=== PATIENT | female | born 1950 | race African-American/Black ===

== ENCOUNTER 2017-07-29 18:26 | Emergency (ER) | payer BC ==
[2017-07-29 19:46] LABS: #Basophils 0.1 thou/uL (0.0-0.2); #Eosinphils 0.2 thou/uL (0.0-0.7); #Lymphocytes 3.1 thou/uL (1.20-3.40); #Monocytes 0.5 thou/uL (0.11-0.59); %Basophils 1.3 % (0.0-1.0); %Eosinophils 2.8 % (0.0-10.0); %Lymphocytes 39.2 % (21.0-51.0); %Monocytes 6.6 % (0.0-10.0); %Neutrophils 50.2 % (42.0-75.0); Hemoglobin 13.2 g/dL (12.0-16.0); Mean Corpuscular HGB CONC 32.1 g/dL (32.0-36.0); Mean Corpuscular Hemoglobin 30.6 pg (27.0-31.0); Mean Corpuscular Volume 95.3 fl (81.0-99.0); Mean Platelet Volume 8.5 fL (7.4-10.4); Platelet Count 206 thou/uL (130-400); RBC Distribution Width 12.5 % (11.5-14.5); Red Blood Cell (RBC) Count 4.33 mill/uL (4.20-5.40)
[2017-07-29 20:07] LABS: ALT (SGPT) 9 U/L (8-55); AST (SGOT) 16 U/L (5-34); Albumin 4.6 g/dL (3.4-4.8); Alkaline Phosphatase 57 U/L (40-150); Anion Gap 12 mmol/L (10-20); BUN (Urea Nitrogen) 14 mg/dL (9.8-20.1); Bilirubin, Total 0.6 mg/dL (0.2-1.2); CK (CPK) 82 U/L (29-168); Calc. Creatinine Clearance 0 mL/min (70-130); Calcium 9.9 mg/dL (7.8-10.44); Carbon Dioxide 28 mmol/L (23-31); Chloride 103 mmol/L (98-107); Estimated GFR-MDRD 67; Globulin 3.6 g/dL (2.4-3.5); Glucose 107 mg/dL (80-115); Potassium 4.2 mmol/L (3.5-5.1); Protein, Total 8.2 g/dL (6.0-8.3); Sodium 139 mmol/L (136-145)
[2017-07-29 20:12] LABS: CKMB 0.6 ng/mL (0-6.6); Troponin I Less than 0.010 ng/mL (< 0.028)
--- NOTE | 2017-07-29 20:37 | RAD ---
PORTABLE AP CHEST RADIOGRAPH: Date: 07-29-17 History: Chest pain for two days. FINDINGS: Cardiac silhouette and pulmonary vasculature are within normal limits. There are few linear densities seen within the upper lung zones bilaterally, likely related to linear areas of scarring. Calcified granulomata overlie the left upper lung zone. Lungs are otherwise clear. Mild degenerative changes ar e present in the spine. There is bilateral glenohumeral osteoarthropathy with bilateral acromioclavic ular joint osteoarthritis. Vascular calcification in the thoracic aorta. IMPRESSION: 1. Vascular calcification in the thoracic aorta. 2. Mild chronic lung changes, but no acute cardiopulmonary process is visualized. POS: [facility]
--- NOTE | 2017-08-17 13:04 | EKG ---
Test Reason : Blood Pressure : / mmHG Vent. Rate : 071 BPM Atrial Rate : 071 BPM P-R Int : 158 ms QRS Dur : 080 ms QT Int : 400 ms P-R-T Axes : 062 -17 000 degrees QTc Int : 434 ms Normal sinus rhythm Nonspecific T wave abnormality Abnormal ECG No ST elevation/IN Confirmed by DELVIN FAUSTIN, MOMO ([id number]), editorial cartoonist CARLOS SPEAR ([id number]) on 08/17/2017 1:04:42 PM Referred By: Confirmed By:MOMO HARGROVE MD
== END 2017-07-29 23:20 | disposition home or self-care (01) ==
LOC: ERS 18:26
DX: R07.9 Chest pain, unspecified (principal); F41.9 Anxiety disorder, unspecified; F32.9 Major depressive disorder, single episode, unspecified; J45.909 Unspecified asthma, uncomplicated
CPT/HCPCS: 36415; 71045; 80053; 82553; 84484; 85025; 93005

== ENCOUNTER 2018-02-05 21:19 | Emergency (ER) | payer BC, MEDICARE ==
--- NOTE | 2018-02-06 00:15 | RAD ---
CHEST ONE VIEW 02/05/18 COMPARISON: 07/29/17 HISTORY: Pain. FINDINGS: Slight elongation of the aorta. Normal cardiac silhouette. Pulmonary vessels and hilum are normal. Co stophrenic angles are clear. Chronic change in lung parenchyma without consolidation or mass. No pneu mothorax. Chronic changes in both shoulders. IMPRESSION: No acute cardiopulmonary process. POS: [facility]
[2018-02-06 00:57] LABS: #Basophils 0.1 thou/uL (0.0-0.2); #Lymphocytes 2.6 thou/uL (1.20-3.40); #Monocytes 0.5 thou/uL (0.11-0.59); #Neutrophils 4.3 thou/uL (1.40-6.50); %Basophils 1.1 % (0.0-1.0); %Lymphocytes 27.2 % (21.0-51.0); %Monocytes 5.7 % (0.0-10.0); Hemoglobin 12.9 g/dL (12.0-16.0); Mean Corpuscular HGB CONC 34.8 g/dL (32.0-36.0); Mean Corpuscular Hemoglobin 32.5 pg (27.0-31.0); Mean Corpuscular Volume 93.3 fL (78.0-98.0); Mean Platelet Volume 8.3 fL (7.4-10.4); Platelet Count 153 thou/uL (130-400); RBC Distribution Width 12.5 % (11.5-14.5); Red Blood Cell (RBC) Count 3.98 mill/uL (4.20-5.40); White Blood Cell (WBC) Count 9.6 thou/uL (4.8-10.8)
[2018-02-06 01:18] LABS: ALT (SGPT) 9 U/L (8-55); AST (SGOT) 15 U/L (5-34); Albumin 4.4 g/dL (3.4-4.8); Alkaline Phosphatase 59 U/L (40-150); Anion Gap 12 mmol/L (10-20); BUN (Urea Nitrogen) 12 mg/dL (9.8-20.1); CK (CPK) 109 U/L (29-168); Calc. Creatinine Clearance 0 mL/min (70-130); Calcium 9.2 mg/dL (7.8-10.44); Carbon Dioxide 26 mmol/L (23-31); Chloride 104 mmol/L (98-107); Estimated GFR-MDRD Greater than 90; Globulin 2.9 g/dL (2.4-3.5); Glucose 105 mg/dL (80-115); Potassium 3.5 mmol/L (3.5-5.1); Protein, Total 7.3 g/dL (6.0-8.3); Sodium 138 mmol/L (136-145)
[2018-02-06 01:22] LABS: CKMB 0.9 ng/mL (0-6.6); Troponin I Less than 0.010 ng/mL (< 0.028)
[2018-02-06] MEDS ORDERED: Azithromycin 250 MG TAB ONE ×2 (02:18→03:24)
[2018-02-06] MEDS ORDERED: predniSONE 20 MG TAB ONE (03:01)
--- NOTE | 2018-02-06 09:55 | CT ---
PRELIMINARY REPORT/[facility]/EMERGENTY AFTER-HOURS PROCEDURE CT Angiography Chest With Intravenous Contrast EXAM DATE/TIME: 02/06/2018 1:49 AM CLINICAL HISTORY: 67 years old, female; Signs and symptoms; Cough; Cough with hemorrhage; Patient HX: Patient presents for evaluation of cough, productive of bloody sputum TECHNIQUE: Axial computed tomographic angiography images of the chest with intravenous contrast using CT angiogr aphy protocol. MIP reconstructed images were created and reviewed. COMPARISON: No relevant prior studies available. FINDINGS: Pulmonary arteries: Adequate contrast enhancement of the pulmonary arteries. No evidence of filling d efects in the cardiac chambers. Aorta: No evidence of aortic dissection. Chronic atherosclerotic calcification of the vasculature. Lungs: No evidence endobronchial lesion. Multifocal linear air space opacity bilateral upper lobes an d lower lobes, most suspicious for atelectasis/scarring. Pleural space: No evidence of pleural effusion. No evidence of pneumothorax. Heart: Heart appears within normal limits, no pericardial effusion. Bones/joints: Musculoskeletal structures appear intact. Multi-level degenerative changes involve the thoracic spine. Soft tissues: Unremarkable. Lymph nodes: Few subcentimeter mediastinal lymph nodes. IMPRESSION: 1. No evidence of pulmonary embolism. 2. Multifocal linear air space opacity bilateral upper lobes and lower lobes, most suspicious for ate lectasis/scarring. Thank you for allowing us to participate in the care of your patient. Dictated and Authenticated by: Merari Martinez MD 02/06/2018 2:46 AM Central Time ([place] & [place]) FINAL REPORT EMERGENCY AFTER HOURS CT ANGIOGRAM THORAX WITH IV CONTRAST AND 3D RECONSTRUCTIONS: Date: 02/06/18 HISTORY: Cough, hemoptysis. IMPRESSION: 1. No CT evidence of a pulmonary embolus. 2. Minimal vascular calcifications of aortic arch. The thoracic aorta is normal in caliber without e vidence of an aortic dissection. 3. Linear densities within the bilateral upper lobes and lower lobes, which may be related to atelec tasis and/or areas of scarring. 4. No discrete pulmonary nodule, mass, or pleural effusion is seen bilaterally. 5. Bilateral glenohumeral osteoarthropathy, much greater on the left. Findings are in agreement with the preliminary report by Sand[facility]. POS: [facility]
[2018-02-06] MEDS ORDERED: ISOVUE-370 76%-LOCM 1 ML ONE (11:19)
--- NOTE | 2018-02-08 12:09 | EKG ---
Test Reason : Blood Pressure : / mmHG Vent. Rate : 081 BPM Atrial Rate : 081 BPM P-R Int : 152 ms QRS Dur : 070 ms QT Int : 378 ms P-R-T Axes : 072 -13 005 degrees QTc Int : 439 ms Normal sinus rhythm Normal ECG Confirmed by JOSHUA BRADY ([id number]), supervising film or videotape editor CARLOS SPEAR ([id number]) on 02/08/2018 12:09:21 PM Referred By: Confirmed By:JOSHUA BRADY
== END 2018-02-06 03:35 | disposition home or self-care (01) ==
LOC: ERS 21:19
DX: J40 Bronchitis, not specified as acute or chronic (principal)
CPT/HCPCS: 36415; 71045; 71275; 80053; 82553; 84484; 85025; 93005; J7506